=== PATIENT | female | born 1985 | race Caucasian/White ===

== ENCOUNTER 2021-04-20 07:03 | Outpatient (REF) | payer OTHER, SELFPAY ==
[2021-04-20 11:33] LABS: MANUAL DIFF FLAG NO
[2021-04-20 11:39] LABS: Appearance Urine CLEAR; Glucose Urine UA NEG (NEG); Leukocyte Esterase Urine NEG (NEG); Nitrite Urine NEG (NEG); Urine Blood NEG (NEG); Urine Ketones NEG (NEG); Urine Protein NEG (NEG-TRACE)
[2021-04-20 11:40] LABS: Color Urine COLORLESS
[2021-04-20 11:41] LABS: Basophils Percent Auto 0.4 % (0-2); Eosinophils Absolute Auto 0.2 X10*3/uL (0.0-0.4); Eosinophils Percent Auto 3.9 % (0-4); Hematocrit 40.5 % (37.0-47.0); Hemoglobin 13.4 g/dl (12.0-16.0); Imm Gran Abs Auto 0.01 X10*3/uL (0.00-0.03); Imm Gran Pct Auto 0.2 % (0.0-0.4); Lymphocytes Absolute Auto 2.2 X10*3/uL (1.2-4.9); Lymphocytes Percent Auto 39.8 % (20-40); Mean Corpuscular HGB Conc 33.1 g/dl (31.0-35.0); Mean Corpuscular Hemoglobin 29.4 pg (27.0-33.0); Mean Corpuscular Volume 88.8 fL (80.0-98.0); Mean Platelet Volume 11.6 fL (9.4-12.3); Monocytes Absolute Auto 0.4 X10*3/uL (0.1-1.2); Monocytes Percent Auto 6.4 % (2-11); Neutrophils Absolute Auto 2.8 x10*3/uL (2.0-8.3); Neutrophils Percent Auto 49.3 % (45-73); Platelet Count 214 X10*3/uL (160-400); Red Blood Count 4.56 X10*6/uL (4.20-5.50); Red Cell Distribution Width 13.3 % (11.0-16.0); White Blood Count 5.6 X10*3/uL (4.8-10.8)
[2021-04-20 11:52] LABS: Alanine Aminotransferase 29 U/L (0-31); Albumin Level 3.8 g/dL (3.5-5.0); Alkaline Phosphatase 64 U/L (39-117); Anion Gap 10 (12-20); Aspartate Amino Transferase 21 U/L (5-31); Bilirubin Total 0.4 mg/dL (0.0-1.0); Blood Urea Nitrogen 16 mg/dL (9-16); C Reactive Protein 0.35 mg/dL (< or = 0.50); Calcium 9.2 mg/dL (8.4-10.2); Carbon Dioxide 26 mmol/L (22-29); Chloride 109 mmol/L (96-108); Cholesterol 208 mg/dL; Estimated Glomerular Filt Rate > 60; Glucose Fasting 92 mg/dL (60-99); HDL Cholesterol 42 mg/dL; LDL Cholesterol Calculated 126 mg/dl; Potassium 4.4 mmol/L (3.3-5.1); Rheumatoid Factor < 15.0 IU/mL (<15.0); Sodium 141 mmol/L (135-145); Total Protein 6.2 g/dL (6.5-8.0); Triglycerides 201 mg/dL
[2021-04-20 12:15] LABS: TSH reflex Free T4 3.24 uIU/mL (0.32-4.0)
[2021-04-20 12:33] LABS: Erythrocyte Sedimentation Rate 13 MM/HR (0-20)
[2021-04-21 13:21] LABS: Anti Nuclear Antibody Screen NEGATIVE (NEGATIVE)
[2021-04-21 14:47] LABS: Cyclic Citrullinated Peptide <16 UNITS
[2021-04-21 21:26] LABS: Lyme Abs Screen <0.90 index
== END 2021-04-20 07:04 | disposition home or self-care (01) ==
LOC: HO.HMGCLDS 07:03
PROVIDERS: PCP Nurse Practitioner Family; Visit Provider Nurse Practitioner Family
DX: Z01.84 Encounter for antibody response examination (principal); M25.50 Pain in unspecified joint; F41.9 Anxiety disorder, unspecified
CPT/HCPCS: 36415; 80053; 80061; 81003; 84443; 85025; 85652; 86038; 86039; 86140; 86200; 86431; 86617; 86618

== ENCOUNTER → 2021-06-29 14:47 | Outpatient (REF) | payer OTHER, SELFPAY ==
--- NOTE | 2021-06-29 14:50 | HM_ITS ---
Conclusion: 1. Patient was monitored for total period of 3 days 2. Baseline was normal sinus rhythm with average heart of 63 beats per minute 3. No significant pauses noted 4. Very rare PVCs noted accounting for less than 0.01% of total beats 5. No patient reported events MTDD
== END ==
LOC: HO.CARD 14:47
PROVIDERS: PCP Nurse Practitioner Family; Visit Provider Nurse Practitioner Family
DX: R00.2 Palpitations (principal)
CPT/HCPCS: 93242

== ENCOUNTER 2021-07-21 15:10 | Outpatient (REF) | payer OTHER, SELFPAY | END 2021-07-21 15:11 | disposition home or self-care (01) | LOC: HO.HMGCLDS 15:10 | PROVIDERS: Visit Provider Nurse Practitioner Family | DX: E03.9 Hypothyroidism, unspecified (principal) | CPT/HCPCS: 36415; 84443 ==

== ENCOUNTER 2021-07-31 15:00 | Outpatient (RCR) | payer OTHER, SELFPAY ==
--- NOTE | 2021-07-20 16:43 | MHC.PT.EP ---
[facility] [place] Office [place] Office [place] Office [address] Kaylen Rodriguez [address] [phone] F: [phone] F: [phone] F: [phone] F: [phone] Physical Therapy Plan of Care Date of Evaluation: Date of Surgery: Diagnosis: L plantar fascial fibrosis. Assessment: Pt is a 35 y/o female referred to PT for eval and treat of plantar fibromatosis who presents with signs and Sx consistent with L foot plantar fasciitis resulting in decreased tolerance and ability to perform ambulatory and standing tasks initially and for duration, performing fitness activities, as well as negotiating stairs, and performing heavy HH chores secondary to decreased B hip and L ankle strength, decreased L ankle ROM as well as moderate pronation posture, increased plantar tissue tension,antalgic gait abnormality, plantar TTP, and pain. Pt is deemed an appropriate candidate to receive skilled PT in order to address her physical limitations to improve her functional ability. Frequency and Duration: The patient will be seen 2 x /wk x 5 wks. Short Term Goals: initiate HEP. improve pain with standing and ambulation to < 5/10; initial 8/10. Packager Hand Goals: i with HEP. Pt will be able to walk 2 blocks with at most a little bit of difficulty; initial: quite a bit of difficulty (LEFI). Pt will be able to stand > 1 hour with at most a little bit of difficulty; initial: quite a bit of difficulty (LEFI). improve B hip and MMT to at least 4+/5; initial 4/5 B. Pt no longer TTP of plantar tissue; initial: 2 + , moderate. Treatment Plan: Modalities to reduce pain, spasms and effusion. Manual therapy to restore motion and function. Therapeutic exercise to improve strength and flexibility. Neuromuscular re-education for posture and balance. Therapeutic activities to return to functional activities of daily living. Electronically signed by: Ian Abdi PT. Please sign and return to therapist. Thank you for your referral.
--- NOTE | 2021-08-17 13:10 | MHC.PT.DC ---
[facility] [place] Office [place] Office [place] Office [address] Kaylen Rodriguez [address] [phone] F: [phone] F: [phone] F: [phone] F: [phone] Physical Therapy Discharge Report Diagnosis: L plantar fascialfibrosis. Date of Surgery: Date of Evaluation: 07/20/21 Date of Discharge: 08/17/21 Treatments to Date: 2 Cancellations to Date: 1 No Shows to Date: 3 Discharge Status: Visit Non-compliance Discharge Summary: Pt instructed in basic HEP for her condition and ed on activity modification. Unfortunately she logged 1 cancelled and 3 no show appointments and is DC'd per [facility] attendance policy. Electronically signed by: Ian Abdi PT. Please sign and return to therapist. Thank you for your referral.
== END 2021-08-17 13:18 | disposition home or self-care (01) ==
LOC: HO.PTCHIC 15:00
PROVIDERS: PCP Nurse Practitioner Family; Visit Provider Nurse Practitioner Family
DX: M72.2 Plantar fascial fibromatosis (principal)
CPT/HCPCS: 97035; 97110; 97140; 97161

== ENCOUNTER 2021-10-01 07:31 | Outpatient (REF) | payer OTHER, SELFPAY ==
[2021-10-01 11:23] LABS: MANUAL DIFF FLAG NO
[2021-10-01 11:29] LABS: Appearance Urine CLEAR; Color Urine YELLOW; Glucose Urine UA NEG (NEG); Leukocyte Esterase Urine NEG (NEG); Nitrite Urine NEG (NEG); Specific Gravity - Urine <= 1.005 (1.005-1.025); Urine Blood NEG (NEG); Urine Ketones NEG (NEG); Urine Protein NEG (NEG-TRACE)
[2021-10-01 11:34] LABS: Basophils Percent Auto 0.5 % (0-2); Eosinophils Absolute Auto 0.3 X10*3/uL (0.0-0.4); Eosinophils Percent Auto 4.1 % (0-4); Hematocrit 41.5 % (37.0-47.0); Hemoglobin 13.9 g/dl (12.0-16.0); Imm Gran Abs Auto 0.01 X10*3/uL (0.00-0.03); Imm Gran Pct Auto 0.2 % (0.0-0.4); Lymphocytes Absolute Auto 2.6 X10*3/uL (1.2-4.9); Lymphocytes Percent Auto 42.2 % (20-40); Mean Corpuscular HGB Conc 33.5 g/dl (31.0-35.0); Mean Corpuscular Hemoglobin 29.9 pg (27.0-33.0); Mean Corpuscular Volume 89.2 fL (80.0-98.0); Mean Platelet Volume 11.4 fL (9.4-12.3); Monocytes Absolute Auto 0.4 X10*3/uL (0.1-1.2); Monocytes Percent Auto 6.4 % (2-11); Neutrophils Absolute Auto 2.9 x10*3/uL (2.0-8.3); Neutrophils Percent Auto 46.6 % (45-73); Platelet Count 235 X10*3/uL (160-400); Red Blood Count 4.65 X10*6/uL (4.20-5.50); Red Cell Distribution Width 13.3 % (11.0-16.0); White Blood Count 6.1 X10*3/uL (4.8-10.8)
[2021-10-01 11:53] LABS: Alanine Aminotransferase 27 U/L (0-31); Alkaline Phosphatase 59 U/L (39-117); Anion Gap 10 (12-20); Aspartate Amino Transferase 21 U/L (5-31); Bilirubin Total 0.5 mg/dL (0.0-1.0); Blood Urea Nitrogen 15 mg/dL (9-16); Calcium 9.2 mg/dL (8.4-10.2); Carbon Dioxide 27 mmol/L (22-29); Chloride 107 mmol/L (96-108); Cholesterol 203 mg/dL; Estimated Glomerular Filt Rate > 60; Glucose Fasting 87 mg/dL (60-99); HDL Cholesterol 41 mg/dL; LDL Cholesterol Calculated 117 mg/dl; Potassium 4.7 mmol/L (3.3-5.1); Sodium 139 mmol/L (135-145); Total Protein 6.5 g/dL (6.5-8.0); Triglycerides 228 mg/dL
[2021-10-01 12:15] LABS: TSH reflex Free T4 2.01 uIU/mL (0.32-4.0)
== END 2021-10-01 07:32 | disposition home or self-care (01) ==
LOC: HO.HMGCLDS 07:31
PROVIDERS: PCP Nurse Practitioner Family; Visit Provider Nurse Practitioner Family
DX: F41.9 Anxiety disorder, unspecified (principal)
CPT/HCPCS: 36415; 80053; 80061; 81003; 84443; 85025

== ENCOUNTER 2021-12-10 10:57 | Outpatient (REF) | payer OTHER, SELFPAY ==
[2021-12-10 13:41] LABS: MANUAL DIFF FLAG NO
[2021-12-10 13:49] LABS: Basophils Percent Auto 0.6 % (0-2); Eosinophils Absolute Auto 0.3 X10*3/uL (0.0-0.4); Eosinophils Percent Auto 3.8 % (0-4); Hematocrit 43.1 % (37.0-47.0); Hemoglobin 14.9 g/dl (12.0-16.0); Imm Gran Abs Auto 0.02 X10*3/uL (0.00-0.03); Imm Gran Pct Auto 0.3 % (0.0-0.4); Lymphocytes Absolute Auto 2.4 X10*3/uL (1.2-4.9); Mean Corpuscular HGB Conc 34.6 g/dl (31.0-35.0); Mean Corpuscular Hemoglobin 30.5 pg (27.0-33.0); Mean Corpuscular Volume 88.3 fL (80.0-98.0); Monocytes Absolute Auto 0.5 X10*3/uL (0.1-1.2); Neutrophils Percent Auto 55.3 % (45-73); Platelet Count 247 X10*3/uL (160-400); Red Blood Count 4.88 X10*6/uL (4.20-5.50); Red Cell Distribution Width 12.5 % (11.0-16.0); White Blood Count 7.2 X10*3/uL (4.8-10.8)
[2021-12-10 14:11] LABS: Alanine Aminotransferase 26 U/L (0-31); Albumin Level 4.4 g/dL (3.5-5.0); Alkaline Phosphatase 69 U/L (39-117); Anion Gap 15 (12-20); Aspartate Amino Transferase 17 U/L (5-31); Bilirubin Total 0.5 mg/dL (0.0-1.0); Blood Urea Nitrogen 18 mg/dL (9-16); Calcium 9.2 mg/dL (8.4-10.2); Carbon Dioxide 27 mmol/L (22-29); Chloride 105 mmol/L (96-108); Estimated Glomerular Filt Rate > 60; Glucose Random 90 mg/dL (60-115); Potassium 4.9 mmol/L (3.3-5.1); Sodium 142 mmol/L (135-145); Total Protein 7.3 g/dL (6.5-8.0)
== END 2021-12-10 10:58 | disposition home or self-care (01) ==
LOC: HO.HMGCLDS 10:57
PROVIDERS: PCP Nurse Practitioner Family; Visit Provider Nurse Practitioner Family
DX: R00.2 Palpitations (principal); R42 Dizziness and giddiness
CPT/HCPCS: 36415; 80053; 84443; 85025

== ENCOUNTER 2021-12-29 11:26 | Outpatient (REF) | payer OTHER, SELFPAY ==
[2021-12-29 14:00] LABS: MANUAL DIFF FLAG NO
[2021-12-29 14:24] LABS: Basophils Percent Auto 0.4 % (0-2); Eosinophils Absolute Auto 0.3 X10*3/uL (0.0-0.4); Eosinophils Percent Auto 3.7 % (0-4); Hematocrit 41.6 % (37.0-47.0); Imm Gran Abs Auto 0.02 X10*3/uL (0.00-0.03); Imm Gran Pct Auto 0.3 % (0.0-0.4); Lymphocytes Absolute Auto 2.4 X10*3/uL (1.2-4.9); Lymphocytes Percent Auto 32.8 % (20-40); Mean Corpuscular HGB Conc 33.7 g/dl (31.0-35.0); Mean Corpuscular Hemoglobin 29.7 pg (27.0-33.0); Mean Corpuscular Volume 88.3 fL (80.0-98.0); Mean Platelet Volume 11.4 fL (9.4-12.3); Monocytes Absolute Auto 0.4 X10*3/uL (0.1-1.2); Monocytes Percent Auto 5.5 % (2-11); Neutrophils Absolute Auto 4.1 x10*3/uL (2.0-8.3); Neutrophils Percent Auto 57.3 % (45-73); Platelet Count 244 X10*3/uL (160-400); Red Blood Count 4.71 X10*6/uL (4.20-5.50); Red Cell Distribution Width 12.8 % (11.0-16.0); White Blood Count 7.2 X10*3/uL (4.8-10.8)
[2021-12-29 14:41] LABS: Alanine Aminotransferase 23 U/L (0-31); Albumin Level 4.1 g/dL (3.5-5.0); Alkaline Phosphatase 69 U/L (39-117); Anion Gap 14 (12-20); Aspartate Amino Transferase 18 U/L (5-31); Bilirubin Total 0.3 mg/dL (0.0-1.0); Blood Urea Nitrogen 17 mg/dL (9-16); Calcium 9.2 mg/dL (8.4-10.2); Carbon Dioxide 24 mmol/L (22-29); Chloride 106 mmol/L (96-108); Estimated Glomerular Filt Rate > 60; Glucose Random 88 mg/dL (60-115); Iron 77 mcg/dL (30-160); Percent Iron Saturation 22 % (15-50); Potassium 4.3 mmol/L (3.3-5.1); Sodium 140 mmol/L (135-145); Total Iron Binding Capacity 349 mcg/dL (228-428); Unsaturated Iron Binding 272 ug/dL
[2021-12-29 14:59] LABS: Erythrocyte Sedimentation Rate 16 MM/HR (0-20)
[2021-12-29 15:05] LABS: Ferritin 59 ng/mL (10-122)
[2021-12-29 15:09] LABS: Vitamin B12 275 pg/mL (200-900)
[2021-12-29 15:11] LABS: Monotest Negative (Negative)
[2021-12-30 11:42] LABS: CRP High Sensitivity 1.4 mg/L
[2021-12-30 20:47] LABS: Anti Nuclear Antibody Screen NEGATIVE (NEGATIVE)
[2021-12-30 23:18] LABS: A. Phagocytphilium DNA,RT-PCR NOT DETECTED (NOT DETECTED); Babesia Microti DNA, RT-PCR NOT DETECTED (NOT DETECTED); Borrelia Miyamotoi,DNA RT-PCR NOT DETECTED (NOT DETECTED); E.Chaffeensis DNA RT-PCR NOT DETECTED (NOT DETECTED); Lyme(Borrelia ssp)DNA RT-PCR NOT DETECTED (NOT DETECTED)
[2022-01-06 15:42] LABS: DNAds, Crithidia Antibody Positive (Negative)
[2022-01-06 16:16] LABS: DNAds, Crithidia Antibody 1:40 titer (<1:10)
== END 2021-12-29 11:27 | disposition home or self-care (01) ==
LOC: HO.HMGCLDS 11:26
PROVIDERS: PCP Nurse Practitioner Family; Visit Provider Nurse Practitioner Family
DX: R42 Dizziness and giddiness (principal); R53.83 Other fatigue
CPT/HCPCS: 36415; 80053; 82607; 82728; 83540; 85025; 85652; 86038; 86039; 86141; 86255; 86308; 87798; 87801

== ENCOUNTER 2022-01-09 10:35 | Outpatient (REF) | payer OTHER, SELFPAY ==
--- NOTE | ~2022-01-09 | XR_ITS ---
EXAMINATION: XR CHEST CLINICAL INFORMATION: R06.2 - Wheezing COMPARISON: None TECHNIQUE: 2 views of the chest were obtained. FINDINGS: No hyperinflation. No pneumothorax, airspace consolidation, or groundglass opacity. The costophrenic sulci are clear. Heart size normal. Vascularity normal. The hilar and mediastinal contours and visualized bony structures are unremarkable. XR/XR chest 2V IMPRESSION: Normal study.
[2022-01-15 18:25] LABS: Histamine Plasma <1.5 ng/mL (< OR = 1.8)
== END 2022-01-09 10:36 | disposition home or self-care (01) ==
LOC: HO.LAB 10:35
PROVIDERS: PCP Nurse Practitioner Family; Visit Provider Nurse Practitioner Family
DX: R06.2 Wheezing (principal); R42 Dizziness and giddiness
CPT/HCPCS: 36415; 71046; 83088

== ENCOUNTER → 2022-01-13 07:37 | Outpatient (REF) | payer OTHER, SELFPAY ==
--- NOTE | 2022-01-13 07:40 | HM_ITS ---
Conclusion: 1. Patient was monitored for total period of 2 days and 2 hours 2. Baseline was normal sinus with average heart of 61 beats per minute with lowest heart rate of 37 beats per minute 3. No significant pauses noted 4. Frequent sinus bradycardia noted with 53% of the time heart rate below 60 beats per minute 5. Very rare ectopy noted 6. No patient reported symptoms MTDD
== END ==
LOC: HO.CARD 07:37
PROVIDERS: PCP Nurse Practitioner Family; Visit Provider Nurse Practitioner Family
DX: R00.2 Palpitations (principal)
CPT/HCPCS: 93242

== ENCOUNTER → 2022-01-28 14:51 | Outpatient (REF) | payer OTHER, SELFPAY ==
--- NOTE | 2022-01-28 14:53 | CA_ITS ---
Transthoracic Echocardiogram Patient (Last, First, Middle): Shruti Renee, Gender: Female Date of : 1985 Age: 36 Procedure Date: 01/28/2022 Procedure Type: Transthoracic Echocardiogram Location: OP Height: 167.64 cm Weight: 106.6 kg BSA: 2.14 m2 Heart Rate: bpm BP: 118 / 78 mmHg Thread Laster: TO Referring MD: Prasanth Garcia [facility] Sterile Process Coordinator: Mynor Perkins MD Symptoms: R00.2 Study Quality: Fair/Contrast ECG Rhythm: Sinus Conclusions: - Normal study Findings Procedure Information Contrast agent, definity, is being given per protocol without apparent complications. Left Ventricle Normal left ventricular size, thickness, and systolic function. The visually estimated ejection fraction is between 55-60%. Diastolic function is normal for age. Right Ventricle Normal right ventricular cavity size and systolic function. Atria Both atria are normal in size. There is no evidence of interatrial shunt. Aortic Valve Normal aortic valve structure and function. There is no aortic valve stenosis. There is no aortic valve regurgitation. Mitral Valve Normal mitral valve structure and function. There is trace mitral valve regurgitation. There is no mitral valve stenosis. Pulmonic Valve The pulmonic valve is likely normal. Tricuspid Valve Normal tricuspid valve structure. There is trace tricuspid valve regurgitation. The right ventricular systolic pressure is normal. The right ventricular systolic pressure is 16 mmHg. Normal right atrial pressure. There is no evidence of pulmonary hypertension. Great Vessels All visible segments of the aorta are normal in size. The pulmonary artery was not well visualized. Venous The inferior vena cava is normal in size and collapses greater than 50% with inspiration. Pericardium/Pleural There is no evidence of pericardial effusion. Prior Study Comparison No prior study available for comparison. Measurements 2D Linear Measurements IVSd: 0.87 0.6-0.9/0.6-1.0 cm LVIDd: 4.86 3.9-5.3/4.2-5.9 cm LVIDd Index: 2.27 2.4-3.2/2.2-3.1 cm/m2 LVIDs: 2.96 2.0-3.6 cm LVPWd: 0.94 0.7-1.1 cm LA Diam: 3.40 2.7-3.8/3.0-4.0 cm LAIDs Index: 1.59 1.5-2.3 cm/m2 LV Mass: 188.67 67-162/88-224 g LV Mass Index: 88.16 43-95/49-115 g/m2 LVOT Diam: 2.10 3.0+(-)1.3 cm 2D Systolic Function EF 4C: 55.00 >55% EF 2C: 64.00 >55% EF BiP: 59.60 >55% Mitral Valve MV Pk E: 0.94 MV PK A: 0.42 MV Decel Time: 197.00 E/A: 2.20 E'Lateral: 13.80 E'Medial: 10.70 E/E' Med: 8.80 E/E' Lat: 6.80 PHT: 58.00 MVA PHT: 3.79 Decel [place]: 4.76 Aortic Valve AoV Pk Bart: 1.36 AoV Mn Bart: 0.96 AoV VTI: 0.30 AoV Pk Grad: 7.00 Aov Mn Grad: 4.00 DWAIN Cont.VTI: 2.92 LVOT LVOT Pk Bart: 1.24 LVOT Mn Bart: 0.79 LVOT VTI: 0.25 LVOT Pk Grad: 6.00 LVOT Mn Grad: 3.00 LVOT Diam: 2.10 LVOT Area: 3.46 Diastolic Function MV Pk E: 0.94 MV Pk A: 0.42 E/A: 2.20 E'Medial: 10.70 E/E' Med: 8.80 E' Laterial: 13.80 E/E' Lat: 6.80 Right Ventricle TAPSE (mm): 21.60 TVS' Bart: 11.20 Tricuspid Valve TR Pk Bart: 1.82 TR Pk Grad: 13.00 RA Press: 3.00 RVSP: 16.00 Great Vessels Aorta Sinus of Valsalva: 2.94 2.0-3.5 cm Ao Asc: 2.80 2.1-3.4 cm Ao Arch: 2.40 Updated in Other Vendor System with Status of Final Mynor Perkins MD electronically signed on 01/29/2022 1:16:37 PM with status of Final
== END ==
LOC: HO.CARD 14:51
PROVIDERS: Visit Provider Nurse Practitioner Family
DX: R00.2 Palpitations (principal); R42 Dizziness and giddiness
CPT/HCPCS: 93306; Q9957

== ENCOUNTER 2022-04-24 08:09 | Outpatient (REF) | payer OTHER, SELFPAY ==
[2022-04-24 11:27] LABS: Alanine Aminotransferase 17 U/L (0-31); Albumin Level 4.1 g/dL (3.5-5.0); Alkaline Phosphatase 67 U/L (39-117); Anion Gap 11 (12-20); Aspartate Amino Transferase 14 U/L (5-31); Bilirubin Total 0.5 mg/dL (0.0-1.0); Blood Urea Nitrogen 13 mg/dL (9-16); Calcium 9.1 mg/dL (8.4-10.2); Carbon Dioxide 27 mmol/L (22-29); Chloride 107 mmol/L (96-108); Cholesterol 205 mg/dL; Estimated Glomerular Filt Rate > 60; Glucose Fasting 95 mg/dL (60-99); HDL Cholesterol 41 mg/dL; LDL Cholesterol Calculated 130 mg/dl; Potassium 4.8 mmol/L (3.3-5.1); Sodium 140 mmol/L (135-145); Total Protein 6.4 g/dL (6.5-8.0); Triglycerides 171 mg/dL
== END 2022-04-24 08:10 | disposition home or self-care (01) ==
LOC: HO.HMGCLDS 08:09
PROVIDERS: PCP Nurse Practitioner Family; Visit Provider Nurse Practitioner Family
DX: R53.83 Other fatigue (principal)
CPT/HCPCS: 36415; 80053; 80061

== ENCOUNTER → 2022-05-07 07:20 | Outpatient (BNVA) | payer OTHER, SELFPAY | PROVIDERS: PCP Nurse Practitioner Family; Visit Provider Student in an Organized Health Care Education/Training Program | DX: R76.8 Other specified abnormal immunological findings in serum (principal) | CPT/HCPCS: 99212 ==

== ENCOUNTER 2023-03-11 08:08 | Outpatient (AMB) | payer OTHER, MEDICAID, SELFPAY ==
[2023-03-11 08:19] VITALS: BP 120/72; PULSE 94; TEMP 36.6; O2SAT 99; BMI 42.0
--- NOTE | 2023-03-11 08:19 | AM.OFFWIN_ITS ---
Intake Vital Signs 03/11/23 08:19 Height 5 ft 6 in Weight 260 lb BMI 42.0 BP 120/72 Blood Pressure Location Rt brachial Position Sitting Pulse 94 Pulse Source Pulse Oximeter Temp 97.8 F Temp Source Temporal Artery Scan Pulse Oximetry (%) 99 Intake Visit Reasons: EST/possible strep? (lobby masked) Intake Note: Pt is here for c/o possible strep, pt is 32 weeks Patient Tobacco Use Status: Never used Tobacco Allergies pseudoephedrine [Sudafed] Adverse Reaction (Unknown, Verified 03/11/23 08:32) Tachycardia Medication List - Last Reconciled 03/11/23 by Akash Martin MD levothyroxine 75 mcg PO DAILY prenat.vits,viraj,bfh-noth-lrofw 1 tab PO DAILY Do you need a note to return to daycare/school/sports/work: Yes HPI EST/possible strep? (lobby masked) HPI Details Patient presents for a sick visit. Reporting symptoms of sinus congestion, sore throat and difficulty swallowing. Low-grade fever. No family member is sick. No recent travel. Patient reports symptoms of malaise and fatigue. Patient is 32 weeks . She has a pinkeye. She was seen at a walk-in facility yesterday. Is on antibiotics for the eye. [facility] Medical History Acquired hypothyroidism GERD with stricture Obesity Plantar fasciitis of left foot Polyarthralgia depression Surgical History H/O endoscopy History of cholecystectomy Hx of section Hx of colonoscopy Family History Mother Substance use disorder Mental health disorder Medical history unknown Sister Substance use disorder Mental health disorder Sister Substance use disorder Mental health disorder Sister Substance use disorder Mental health disorder Social History Housing: House Alcohol intake: current Alcohol intake frequency: a few times a month Patient Tobacco Use Status: Never used Tobacco e-Cigarette/Vaping Use: Never Used Second Hand Smoke Exposure: No Current occupational status: employed 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 Corneas clear. Anterior chamber clear. Neck Neck: Yes normal visual inspection Chest Chest palpation & inspection: normal palpation of entire chest wall Resp Effort & Inspection: normal respiratory effort Cardio Heart sounds: S1 normal heart sound present and S2 normal heart sound present Neuro General: patient oriented x3 Assessment & Plan Assessment & Plan (1) Upper respiratory tract infection: Code(s): J06.9 - Acute upper respiratory infection, unspecified Plan: Symptoms mostly of viral etiology. Strep test is negative. Patient does have some white spots in the back of her throat. Do not look infectious. No antibiotics needed. Continue ointment for the eye. Coding Level of Care Code Est Pt Level 3 (49595) Diagnoses Upper respiratory tract infection J06.9
== END 2023-03-11 08:45 | disposition home or self-care (01) ==
PROVIDERS: PCP Nurse Practitioner Family; Visit Provider Internal Medicine
DX: J06.9 Acute upper respiratory infection, unspecified (principal); J02.9 Acute pharyngitis, unspecified
CPT/HCPCS: 87880; 99213

== ENCOUNTER 2023-03-22 12:42 | Outpatient (AMB) | payer OTHER, MEDICAID, SELFPAY ==
--- NOTE | 2023-03-22 13:11 | MHC.OFFWIV ---
Intake Vital Signs 03/22/23 13:14 Height 5 ft 6 in Weight 262 lb BMI 42.3 BP 134/78 Blood Pressure Location Lt brachial Position Sitting Pulse 96 Pulse Source Pulse Oximeter Temp 98.1 F Temp Source Temporal Artery Scan Pulse Oximetry (%) 98 Intake Visit Reasons: EP cough airway feels restricted few weeks Intake Note: pt is here for c.o cough was seen in walk in recently and has no relief Patient Tobacco Use Status: Never used Tobacco Allergies pseudoephedrine [Sudafed] Adverse Reaction (Unknown, Verified 03/22/23 13:24) Tachycardia Do you need a note to return to daycare/school/sports/work: Yes HPI HPI Comments History of Present Illness Details Patient is a 37-year-old female in today for a sick visit. She was last seen in the walk-in 11 days prior to the appointment for similar complaint of dry cough that gets worse at night. She states that she has multiple family members at home that have been sick, including her partner and child. She denies having fever, chest pain, shortness of breath, nausea, vomiting, or diarrhea. She states she has used crel-[id number] cough medicine with little relief. She is currently 34 weeks she is being followed by [facility] cosmetic sales assistant. Patient's head is normocephalic, TMs visible intact and pearly vega. Nares patent. No mastoid tenderness. Erythema, and cobblestoning of the posterior pharynx. Tonsils are +2, erythema. No lymphadenopathy. Patient likely has upper respiratory viral infection. This is unlikely to be epiglottitis, mastoiditis, or pose any threat to the airway. This is unlikely to be pneumonia due to clear lung sounds bilaterally throughout and no presence of fever. Patient can use approved over the counter cough medicine. She has been educated on the side effects of the medication. Patient has been advised to inform her [facility] office of her visits to the walk-in clinic. Patient has been educated on signs of worsening symptoms when to return to the walk-in clinic or when to present to the emergency room. [facility] Medical History Acquired hypothyroidism GERD with stricture Obesity Plantar fasciitis of left foot Polyarthralgia depression Surgical History H/O endoscopy History of cholecystectomy Hx of section Hx of colonoscopy Family History Mother Substance use disorder Mental health disorder Medical history unknown Sister Substance use disorder Mental health disorder Sister Substance use disorder Mental health disorder Sister Substance use disorder Mental health disorder Social History Housing: House Alcohol intake: current Alcohol intake frequency: a few times a month Patient Tobacco Use Status: Never used Tobacco e-Cigarette/Vaping Use: Never Used Second Hand Smoke Exposure: No Current occupational status: employed 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 Cognitive needs: No Hearing needs: No Vision needs: No Review of Systems Const All systems reviewed & are unremarkable except as noted in HPI and below Denies headache(s) ENT Denies dizziness, Denies otalgia and Denies headache(s) Card Denies chest pain and Denies dyspnea Resp Reports cough and Denies dyspnea GI Denies diarrhea, Denies nausea and Denies vomiting Neuro Denies dizziness and Denies headache(s) Physical Exam Vital Signs: Last Vital Signs Temp 98.1 F 03/22/23 13:14 Pulse 96 03/22/23 13:14 BP 134/78 03/22/23 13:14 Pulse Ox 98 03/22/23 13:14 BMI result Body Mass Index 42.3 Patient's vital signs have been reviewed and are stable. Const General: cooperative and no acute distress Orientation/consciousness: patient oriented x3 Limitations: no limitations HEENT Head: Yes normocephalic Ears: TM's normal bilaterally General nose exam: Normal external nose present and Normal nares present Face and sinus: Yes normal facial exam Throat: Yes abnormal tonsil (Tonsils +2, erythema present.) and Yes cobblestoning Eyes General: appearance normal, both eyes and all related structures Neck Neck: Yes normal visual inspection, Yes full ROM and Yes no lymphadenopathy Resp Auscultation: clear to auscultation bilaterally Cardio Rate: regular rate Rhythm: regular rhythm Heart sounds: S1 normal heart sound present and S2 normal heart sound present Neuro General: patient oriented x3 Results Reviewed Results Reviewed: Will call patient with swab results. Assessment & Plan Assessment & Plan (1) Upper respiratory tract infection: Code(s): J06.9 - Acute upper respiratory infection, unspecified Qualifiers: URI type: unspecified URI Qualified Code(s): J06.9 - Acute upper respiratory infection, unspecified Plan: Patient has no fever, breath sounds are clear bilaterally throughout, patient has no shortness of breath. Due to patient's status will recommend patient use [id number]-[id number] remedies for symptom relief. She can use mztp-gxn-kodxhnk cough medicine, humidifier to help with the cough. Patient states she has young kids at home that are sick, swabbed in office. This is likely a infection of viral etiology. Patient has been educated on signs of worsening symptoms when to present to the emergency room or when to present to the walk-in clinic. Orders: Orders SARS-CoV2/FLU/RSV Today J06.9 - Acute upper respiratory infection, unspecified Coding Level of Care Code Est Pt Level 3 (68021) Diagnoses Upper respiratory tract infection, unspecified type J06.9 URI type: unspecified URI Time Spent (min) 15
[2023-03-22 13:14] VITALS: BP 134/78; PULSE 96; TEMP 36.7; O2SAT 98; BMI 42.3
== END 2023-03-22 14:39 | disposition home or self-care (01) ==
PROVIDERS: PCP Nurse Practitioner Family; Visit Provider Nurse Practitioner Primary Care
DX: J06.9 Acute upper respiratory infection, unspecified (principal)
CPT/HCPCS: 99213

== ENCOUNTER 2023-03-22 16:01 | Outpatient (REF) | payer OTHER, SELFPAY ==
[2023-03-22 17:42] LABS: Influenza A PCR NEGATIVE (Negative); Influenza B PCR NEGATIVE (Negative); Resp Syncy Virus RNA Qual PCR NEGATIVE (Negative); SARS COV2 PCR INHOUSE NEGATIVE (Negative)
== END 2023-03-22 16:02 | disposition home or self-care (01) ==
LOC: HO.LNP 16:01
PROVIDERS: Visit Provider Nurse Practitioner Primary Care
DX: Z11.52 Encounter for screening for COVID-19 (principal); J06.9 Acute upper respiratory infection, unspecified
CPT/HCPCS: 0241U

== ENCOUNTER 2023-07-08 11:43 | Outpatient (AMB) | payer OTHER, MEDICAID, SELFPAY ==
--- NOTE | 2023-07-08 11:55 | AM.OFFWIN_ITS ---
Intake Vital Signs 07/08/23 11:57 Weight 241 lb BP 126/80 Blood Pressure Location Lt brachial Position Sitting Pulse 63 Pulse Source Pulse Oximeter Pulse Oximetry (%) 98 Oxygen Delivery Method Room Air Intake Visit Reasons: EP ?Strep Intake Note: Patient here to be tested for strep as her daughter recent tested positive for it and has been having a sore throat for some time now. Patient Tobacco Use Status: Never used Tobacco Allergies pseudoephedrine [Sudafed] Adverse Reaction (Unknown, Verified 07/08/23 11:58) Tachycardia Do you need a note to return to daycare/school/sports/work: No HPI HPI Comments History of Present Illness Details 37 y/o female patient who presents to [facility] in clinic with c/o Sore- throat x 1 week. Daughter home with Strept throat. She wants to get tested just in case she caught it. Denies fevers, chills, nausea or vomiting. [facility] Medical History Acquired hypothyroidism GERD with stricture Obesity Plantar fasciitis of left foot Polyarthralgia depression Surgical History H/O endoscopy History of cholecystectomy Hx of section Hx of colonoscopy Family History Mother Substance use disorder Mental health disorder Medical history unknown Sister Substance use disorder Mental health disorder Sister Substance use disorder Mental health disorder Sister Substance use disorder Mental health disorder Social History Housing: House Alcohol intake: current Alcohol intake frequency: a few times a month Patient Tobacco Use Status: Never used Tobacco e-Cigarette/Vaping Use: Never Used Second Hand Smoke Exposure: No Current occupational status: employed 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 Cognitive needs: No Hearing needs: No Vision needs: No Review of Systems Const All systems reviewed & are unremarkable except as noted in HPI and below Physical Exam Vital Signs: Last Vital Signs Pulse 63 07/08/23 11:57 BP 126/80 07/08/23 11:57 Pulse Ox 98 07/08/23 11:57 Oxygen Delivery Method Room Air 07/08/23 11:57 Const General: comfortable and no acute distress Nutritional Appearance: obese Orientation/consciousness: patient oriented x3 HEENT Head: Yes normocephalic Ears: external ears normal and TM's normal bilaterally General nose exam: Normal nasal mucous membranes and turbinates present Face and sinus: Yes sinuses nontender Mouth: moist mucous membranes Throat: Yes uvula midline and Yes postnasal drainage Resp Effort & Inspection: normal respiratory effort and able to speak in complete sentences Auscultation: clear to auscultation bilaterally, no crackles, no rales, no rhonchi and no wheezes Cardio Rate: regular rate Rhythm: regular rhythm Neuro General: patient oriented x3 Assessment & Plan Assessment & Plan (1) Acute pharyngitis: Code(s): J02.9 - Acute pharyngitis, unspecified Qualifiers: Pharyngitis/tonsillitis etiology: unspecified etiology Qualified Code(s): J02.9 - Acute pharyngitis, unspecified Plan: - Rest - Warm fluids with honey - OTC cough/sorethroat remedies - Acetaminophen for pain relief. Coding Level of Care Code Est Pt Level 3 (05429) Diagnoses Acute pharyngitis, unspecified etiology J02.9 Pharyngitis/tonsillitis etiology: unspecified etiology Time Spent (min) 15
[2023-07-08 11:57] VITALS: BP 126/80; PULSE 63; O2SAT 98
== END 2023-07-08 14:23 | disposition home or self-care (01) ==
PROVIDERS: PCP Nurse Practitioner Family; Visit Provider Nurse Practitioner Family
DX: J02.9 Acute pharyngitis, unspecified (principal)
CPT/HCPCS: 87880; 99213

== ENCOUNTER 2023-07-19 07:31 | Outpatient (AMB) | payer OTHER, MEDICAID, SELFPAY ==
[2023-07-19 07:32] VITALS: BP 104/80; PULSE 82; O2SAT 98; BMI 38.2
--- NOTE | 2023-07-19 07:32 | A.OFFPC_ITS ---
Vital Signs 07/19/23 07:32 Height 5 ft 6 in Weight 237 lb BMI 38.2 BP 104/80 Blood Pressure Location Rt brachial Position Sitting Pulse 82 Pulse Source Pulse Oximeter Pulse Oximetry (%) 98 Oxygen Delivery Method Room Air Intake Visit Reasons: PE Intake Note: Pt is here today for her PE Allergies pseudoephedrine [Sudafed] Adverse Reaction (Unknown, Verified 07/19/23 08:12) Tachycardia Medication List - Last Reconciled 07/19/23 by VENKATESH Nye levothyroxine 75 mcg PO DAILY prenat.vits,viraj,cwz-ojod-lptci 1 tab PO DAILY sertraline 50 mg PO DAILY Tobacco use date assessed: 07/19/23 Dental Screening Dental Screen Date: 07/19/23 Did you have a dental visit in the last 12 months?: Yes Did you have a dental problem in the last 6 months where you did not have access to dental care?: No Was dental information given to patient?: Patient has dentist HPI PE HPI Details Pt is here for a PE. Will order labs. 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 Pt is 2 months . She is taking zoloft which is helpful. Pt is seeing cardiology and rheumatology. [facility] Medical History Plantar fasciitis of left foot depression Obesity Acquired hypothyroidism Polyarthralgia GERD with stricture Surgical History Hx of section History of cholecystectomy H/O endoscopy Hx of colonoscopy Family History Mother Substance use disorder Mental health disorder Medical history unknown Sister Substance use disorder Mental health disorder Sister Substance use disorder Mental health disorder Sister Substance use disorder Mental health disorder Social History Housing: House Alcohol intake: current Alcohol intake frequency: a few times a month Patient Tobacco Use Status: Never used Tobacco e-Cigarette/Vaping Use: Never Used Second Hand Smoke Exposure: No Current occupational status: employed 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 1. Little interest or pleasure in doing things: not at all 2. Feeling down, depressed, or hopeless: not at all 3. Trouble falling or staying asleep, or sleeping too much: not at all 4. Feeling tired or having little energy: not at all 5. Poor appetite or overeating: not at all 6. Feeling bad about yourself - or that you are a failure or have let yourself or your family down: not at all 7. Trouble concentrating on things, such as reading the newspaper or watching television: not at all 8. Moving or speaking so slowly that other people could have noticed. Or the opposite - being so fidgety or restless that you have been moving around a lot more than usual: not at all 9. Thoughts that you would be better off or of hurting yourself in some way: not at all Total score: 0 Depression Screening Interpretation: Negative Depression Screening Done: Yes 25695 - PHQ-9 Billing: Yes Source: Developed by Drs. Tray Snyder, Myra Chowdhury, Edwin Thomason and colleagues, with an educational luisf ernando from [employer]. Thrive Questionnaire Date Thrive assessed: 07/19/23 I am a: Patient What is your living situation today?: I have a steady place to live Within the past 12 months, did the food you bought not last and you didn't have the money to get more?: Never true Within the past 12 months, did you worry whether your food would run out before you got money to buy more?: Never true Do you have trouble paying for medicines?: No Do you have trouble getting transportation to medical appointments?: No Do you have trouble paying your heating and electricity bill?: No Do you have trouble taking care of your child, family member or friend?: No Do you have trouble with day-to-day activities such as bathing, preparing meals, shopping, managing finances, etc.?: No Are you currently unemployed and looking for a job?: No Are you interested in more education?: No Currently or been in a relationship where the following occur: no concerns reported THRIVE Score: 0 AUDIT C Alcohol Use Questionnaire (AUDIT-C) 1. How often do you have a drink containing alcohol?: Never Total Score: 0 YAZAN-7 AMB Questionnaire YAZAN-7 Date YAZAN - 7 assessed: 07/19/23 Feeling nervous, anxious, or on edge: 0 = Not at all Not being able to stop or control worryin = Not at all Worrying too much about different things: 0 = Not at all Trouble relaxin = Not at all Being so restless that it is hard to sit still: 0 = Not at all Becoming easily annoyed or irritable: 0 = Not at all Feeling afraid as if something awful might happen: 0 = Not at all Total YAZAN-7 score (0-4 normal; 5-9 mild; 10-14 moderate; 15-21 severe): 0 Source: Developed by Drs. Tray Snyder, Myra Chowdhury, Edwin Thomason and colleagues, with an educational luis fernando from [employer]. Review of Systems Const Denies chills and Denies fever(s) Eyes Denies blurry vision ENT Denies vertigo, Denies dizziness and Denies sore throat Card Denies chest pain at rest, Denies chest pain with activity, Denies diaphoresis, Denies dyspnea and Denies dyspnea on exertion Resp Denies cough, Denies dyspnea, Denies dyspnea on exertion and Denies wheezing GI Denies abdominal pain, Denies melena, Denies hematochezia, Denies constipation, Denies diarrhea and Denies loose stools Denies hematuria Musc Denies numbness and Denies tingling Skin/Breast Denies lesions Neuro Denies vertigo, Denies dizziness, Denies numbness and Denies tingling Psych Denies anxiety, Denies depression, Denies homicidal ideation, Denies suicidal ideation and Denies other (substance abuse) Aller/Immun Denies wheezing Physical exam (Primary Care) Vital Signs: Last Vital Signs Pulse 82 07/19/23 07:32 BP 104/80 07/19/23 07:32 Pulse Ox 98 07/19/23 07:32 Oxygen Delivery Method Room Air 07/19/23 07:32 BMI result Body Mass Index 38.2 Tobacco/Smoking Status: Tobacco use Status Tobacco use date assessed 07/19/23 07/19/23 07:39 Patient Tobacco Use Status Never used Tobacco 07/19/23 07:34 e-Cigarette/Vaping Use Never Used 07/19/23 07:34 PHQ-9: PHQ-9 Score PHQ-9: Total score 0 07/19/23 07:53 Depression Screening Interpretation: Negative Thrive Assessment: Date of Thrive Assessment Date Thrive assessed 07/19/23 07/19/23 07:43 Currently or been in a relationship where the following occur: no concerns reported Const General: cooperative Nutritional Appearance: obese Orientation/consciousness: patient oriented x3 HENMT Head: Yes normal to inspection, Yes normocephalic and Yes atraumatic Ears: TM's normal bilaterally Eyes General: appearance normal, both eyes and all related structures Alignment and Position: alignment normal and position normal Neck Neck: Yes normal visual inspection and Yes no lymphadenopathy Thyroid: Thyroid normal Resp Effort & Inspection: normal respiratory effort Auscultation: clear to auscultation bilaterally Cardio Rate: regular rate Rhythm: regular rhythm Heart sounds: S1 normal heart sound present, S2 normal heart sound present and no murmurs GI Palpation (GI): Soft to palpation and nontender Auscultation: normal bowel sounds Skin Rashes: no rashes Neuro General: patient oriented x3, moves all extremities, no focal motor deficits and deep tendon reflexes 2+ bilaterally Romberg Test: Negative Psych Appearance: grossly normal Mental Status: mental status grossly normal Speech and movement: Normal speech and movement present Affect: normal affect Attitude: cooperative Thought process: Normal thought process present Thought content: Normal thought content present Insight: Good insight present (Psych) Judgement: Good judgement present (Psych) Assessment and Plan Assessment & Plan (1) Physical exam: Code(s): Z.00 - Encounter for general adult medical examination without abnormal findings Plan: Labs ordered Plan The patient agreed to the use of a medical review specialist for this encounter. Scribed for VENKATESH Tovar by Radha Leija medical review specialist, on 07/19/2023 at 07:55 EST. Orders: Orders Complete Blood Count Auto Diff Today Z00.00 - Encounter for general adult medical examination without abnormal findings Comprehensive [place]. Panel Fast Today Z00.00 - Encounter for general adult medical examination without abnormal findings Lipid Panel Today Z00.00 - Encounter for general adult medical examination without abnormal findings TSH reflex Free T4 Today Z00.00 - Encounter for general adult medical examination without abnormal findings UA CC w/rflx Micro + Cult Today Z00.00 - Encounter for general adult medical examination without abnormal findings Coding Level of Care Code Est Pt Prev Care 18-39y(39700) Diagnoses Physical exam Z00.00
== END 2023-07-19 08:55 | disposition home or self-care (01) ==
PROVIDERS: Visit Provider Nurse Practitioner Family
DX: Z00.00 Encounter for general adult medical examination without abnormal findings (principal)
CPT/HCPCS: 99395

== ENCOUNTER 2023-09-22 08:57 | Outpatient (AMB) | payer OTHER, MEDICAID, SELFPAY ==
--- NOTE | 2023-09-22 09:17 | A.OFFPC_ITS ---
Vital Signs 09/22/23 09:18 Height 5 ft 6 in Weight 237 lb BMI 38.2 BP 118/74 Blood Pressure Location Lt brachial Position Sitting Pulse 87 Pulse Source Pulse Oximeter Pulse Oximetry (%) 97 Oxygen Delivery Method Room Air Intake Visit Reasons: Headache Intake Note: Pt is here today for a sick visit. Pt c/o headaches, and memory issues. Allergies pseudoephedrine [Sudafed] Adverse Reaction (Unknown, Verified 09/22/23 09:20) Tachycardia Medication List - Last Reconciled 09/22/23 by Chanda De Paz MD levothyroxine 75 mcg PO DAILY prenat.vits,viraj,gyr-rtxx-joauk 1 tab PO DAILY sertraline 75 mg PO DAILY Tobacco use date assessed: 09/22/23 Dental Screening Dental Screen Date: 07/19/23 HPI Headache HPI Details Pt presents complaining of becoming more anxious and forgetful. She is having difficulty finding words or not remembering placing objects. Patient has 5-month-old baby and 3 old daughter and works from home 20 hours a week. She reports feeling overwhelmed on occasions but denies depression. Patient helps with children but has a very busy schedule, working occasionally 14 hour day. PFS Medical History Plantar fasciitis of left foot depression Obesity Acquired hypothyroidism Polyarthralgia GERD with stricture Surgical History Hx of section History of cholecystectomy H/O endoscopy Hx of colonoscopy Family History Mother Substance use disorder Mental health disorder Medical history unknown Sister Substance use disorder Mental health disorder Sister Substance use disorder Mental health disorder Sister Substance use disorder Mental health disorder Social History Housing: House Alcohol intake: current Alcohol intake frequency: a few times a month Patient Tobacco Use Status: Never used Tobacco e-Cigarette/Vaping Use: Never Used Second Hand Smoke Exposure: No Current occupational status: employed 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 Tray Snyder, Myra Chowdhury, Edwin Thomason and colleagues, with an educational luis fernando from [employer]. Review of Systems Const All systems reviewed & are unremarkable except as noted in HPI and below Card Reports no additional complaints Resp Reports no additional complaints GI Reports no additional complaints Reports no additional complaints Musc Reports no additional complaints Physical exam (Primary Care) Vital Signs: Last Vital Signs Pulse 87 09/22/23 09:18 BP 118/74 09/22/23 09:18 Pulse Ox 97 09/22/23 09:18 Oxygen Delivery Method Room Air 09/22/23 09:18 BMI result Body Mass Index 38.2 Tobacco/Smoking Status: Tobacco use Status Tobacco use date assessed 09/22/23 09/22/23 09:23 Patient Tobacco Use Status Never used Tobacco 09/22/23 09:18 e-Cigarette/Vaping Use Never Used 09/22/23 09:18 Thrive Assessment: Date of Thrive Assessment Date Thrive assessed 07/19/23 09/22/23 09:18 Assessment and Plan Assessment & Plan (1) Anxiety: Code(s): F41.9 - Anxiety disorder, unspecified Plan: Stress management, mindfulness exercises, regular physical activity, well- balanced diet, sleep hygiene discussed with the patient. She declined seeing counselor. patient is interested in increasing sertraline dose to 75 mg daily. (2) Acquired hypothyroidism: Code(s): E03.9 - Hypothyroidism, unspecified Plan: TSH is normal patient will continue levothyroxine, Medications: New sertraline 75 mg (1.5 x 50 mg) PO DAILY 135 tabs 0RF Coding Level of Care Code Est Pt Level 3 (96614) Diagnoses Anxiety F41.9 Acquired hypothyroidism E03.9
[2023-09-22 09:18] VITALS: BP 118/74; PULSE 87; O2SAT 97; BMI 38.2
== END 2023-09-22 10:57 | disposition home or self-care (01) ==
PROVIDERS: PCP Nurse Practitioner Family; Visit Provider Internal Medicine
DX: F41.9 Anxiety disorder, unspecified (principal); E03.9 Hypothyroidism, unspecified
CPT/HCPCS: 99213

== ENCOUNTER 2024-01-23 09:49 | Outpatient (AMB) | payer OTHER, MEDICAID, SELFPAY ==
[2024-01-23 09:55] VITALS: BP 120/78; PULSE 69; O2SAT 97; BMI 36.0
--- NOTE | 2024-01-23 09:55 | A.OFFPC_ITS ---
Vital Signs 01/23/24 09:55 Height 5 ft 6 in Weight 223 lb BMI 36.0 BP 120/78 Blood Pressure Location Lt brachial Position Sitting Pulse 69 Pulse Source Pulse Oximeter Pulse Oximetry (%) 97 Oxygen Delivery Method Room Air Intake Visit Reasons: 6 month FU Re-schedule , medicine review Intake Note: Pt is here today for 6 month follow up. Allergies pseudoephedrine [Sudafed] Adverse Reaction (Unknown, Verified 09/22/23 09:20) Tachycardia Medication List - Last Reconciled 01/23/24 by VENKATESH Nye levothyroxine 75 mcg PO DAILY prenat.vits,viraj,hlr-dywr-egryn 1 tab PO DAILY sertraline 75 mg (1.5 x 50 mg) PO DAILY tirzepatide (weight loss) 5 mg subcut QWEEK Tobacco use date assessed: 01/23/24 Dental Screening Dental Screen Date: 01/23/24 HPI 6 month FU Re-schedule , medicine review HPI Details Pt reports having previous C-sections. She reports frequent fungal infections to her lower pannus. She has tried nystatin powder which worked okay. Will send ketoconazole. Denies fever, chills, and dizziness. Pt wanted to stop her levothyroxine. Highly encouraged pt to continue this. Will check TSH. PFSH Medical History Plantar fasciitis of left foot depression Obesity Acquired hypothyroidism Polyarthralgia GERD with stricture Surgical History Hx of section History of cholecystectomy H/O endoscopy Hx of colonoscopy Family History Mother Substance use disorder Mental health disorder Medical history unknown Sister Substance use disorder Mental health disorder Sister Substance use disorder Mental health disorder Sister Substance use disorder Mental health disorder Social History Housing: House Alcohol intake: current Alcohol intake frequency: a few times a month Patient Tobacco Use Status: Never used Tobacco e-Cigarette/Vaping Use: Never Used Second Hand Smoke Exposure: No Current occupational status: employed 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 1. Little interest or pleasure in doing things: not at all 2. Feeling down, depressed, or hopeless: not at all 3. Trouble falling or staying asleep, or sleeping too much: not at all 4. Feeling tired or having little energy: several days 5. Poor appetite or overeating: not at all 6. Feeling bad about yourself - or that you are a failure or have let yourself or your family down: not at all 7. Trouble concentrating on things, such as reading the newspaper or watching television: more than half the days 8. Moving or speaking so slowly that other people could have noticed. Or the opposite - being so fidgety or restless that you have been moving around a lot more than usual: not at all 9. Thoughts that you would be better off or of hurting yourself in some way: not at all Total score: 3 Depression Screening Interpretation: Negative Depression Screening Done: Yes 89405 - PHQ-9 Billing: Yes Source: Developed by Drs. Tray Snyder, Myra Chowdhury, Edwin Thomason and colleagues, with an educational luis fernando from [employer]. Thrive Questionnaire Date Thrive assessed: 01/23/24 I am a: Patient What is your living situation today?: I have a steady place to live Within the past 12 months, did the food you bought not last and you didn't have the money to get more?: Never true Within the past 12 months, did you worry whether your food would run out before you got money to buy more?: Never true Do you have trouble paying for medicines?: No Do you have trouble getting transportation to medical appointments?: No Do you have trouble paying your heating and electricity bill?: No Do you have trouble taking care of your child, family member or friend?: No Do you have trouble with day-to-day activities such as bathing, preparing meals, shopping, managing finances, etc.?: No Are you currently unemployed and looking for a job?: No Are you interested in more education?: No Please select the resources that you would like help with: None Currently or been in a relationship where the following occur: No concerns reported THRIVE Score: 0 AUDIT C Alcohol Use Questionnaire (AUDIT-C) 1. How often do you have a drink containing alcohol?: Monthly or less 2. How many drinks containing alcohol do you have on a typical day when you are drinking?: 1 or 2 3. How often do you have six or more drinks on one occasion?: Never Total Score: 1 Score Reviewed/Action Taken: Yes YAZAN-7 AMB Questionnaire YAZAN-7 Date YAZAN - 7 assessed: 01/23/24 Feeling nervous, anxious, or on edge: 0 = Not at all Not being able to stop or control worryin = Not at all Worrying too much about different things: 0 = Not at all Trouble relaxin = Several days Being so restless that it is hard to sit still: 0 = Not at all Becoming easily annoyed or irritable: 0 = Not at all Feeling afraid as if something awful might happen: 0 = Not at all Total YAZAN-7 score (0-4 normal; 5-9 mild; 10-14 moderate; 15-21 severe): 1 Source: Developed by Drs. Tray Snyder, Myra Chowdhury, Edwin Thomason and colleagues, with an educational luis fernando from [employer]. YAZAN-7 Assessment Billing YAZAN-7 Assessment Tool: YAZAN-7 Assessment [id number] Review of Systems Const Reports as per HPI Physical exam (Primary Care) Vital Signs: Last Vital Signs Pulse 69 01/23/24 09:55 BP 120/78 01/23/24 09:55 Pulse Ox 97 01/23/24 09:55 Oxygen Delivery Method Room Air 01/23/24 09:55 BMI result Body Mass Index 36.0 Tobacco/Smoking Status: Tobacco use Status Tobacco use date assessed 01/23/24 01/23/24 09:58 Patient Tobacco Use Status Never used Tobacco 01/23/24 09:58 e-Cigarette/Vaping Use Never Used 01/23/24 09:58 PHQ-9: PHQ-9 Score PHQ-9: Total score 3 01/23/24 10:06 Depression Screening Interpretation: Negative Thrive Assessment: Date of Thrive Assessment Date Thrive assessed 01/23/24 01/23/24 10:06 Currently or been in a relationship where the following occur: No concerns reported Const General: cooperative Nutritional Appearance: obese Orientation/consciousness: patient oriented x3 Resp Effort & Inspection: normal respiratory effort Auscultation: clear to auscultation bilaterally Cardio Rate: regular rate Rhythm: regular rhythm Heart sounds: S1 normal heart sound present and S2 normal heart sound present Skin Other: lower pannus with faint macular erythema (fungal) Neuro General: patient oriented x3 Psych Appearance: grossly normal Mental Status: mental status grossly normal Speech and movement: Normal speech and movement present Affect: normal affect Attitude: cooperative Thought process: Normal thought process present Thought content: Normal thought content present Insight: Good insight present (Psych) Judgement: Good judgement present (Psych) Assessment and Plan Assessment & Plan (1) Tinea: Code(s): B35.9 - Dermatophytosis, unspecified Plan: Ketoconazole sent (2) Acquired hypothyroidism: Code(s): E03.9 - Hypothyroidism, unspecified Plan: Pt mentioned stopping levothyroxine, highly encouraged her to continue this, will check TSH Plan The patient agreed to the use of a medical malpractice paralegal for this encounter. Scribed for VENKATESH Tovar by Radha Leija medical malpractice paralegal, on 01/23/2024 at 10:15 EST. Medications: New betamethasone valerate 0.1% 1 appl topical BID PRN 45 grams 0RF skin irritation ketoconazole 2% 1 appl topical DAILY 60 grams 0RF Coding Level of Care Code Est Pt Level 3 (18394) Diagnoses Tinea B35.9 Acquired hypothyroidism E03.9 Additional Codes YAZAN-7 Assessment Billing - YAZAN-7 Assessment Tool: YAZAN-7 Assessment [id number] ([id number])
== END 2024-01-23 11:15 | disposition home or self-care (01) ==
PROVIDERS: PCP Nurse Practitioner Family; Visit Provider Nurse Practitioner Family
DX: B35.9 Dermatophytosis, unspecified (principal); E03.9 Hypothyroidism, unspecified

== ENCOUNTER → 2024-01-23 09:49 | Outpatient (BNVA) | payer OTHER, MEDICAID, SELFPAY | PROVIDERS: PCP Nurse Practitioner Family; Visit Provider Nurse Practitioner Family | DX: B35.9 Dermatophytosis, unspecified (principal); E03.9 Hypothyroidism, unspecified | CPT/HCPCS: 96127 ==

== ENCOUNTER 2024-02-03 08:30 | Outpatient (REF) | payer OTHER, MEDICAID, SELFPAY ==
[2024-02-03 10:12] LABS: MANUAL DIFF FLAG NO
[2024-02-03 10:22] LABS: Basophils Percent Auto 0.6 % (0-2); Eosinophils Absolute Auto 0.3 X10*3/uL (0.0-0.4); Eosinophils Percent Auto 4.7 % (0-4); Hematocrit 41.8 % (37.0-47.0); Imm Gran Abs Auto 0.02 X10*3/uL (0.00-0.03); Imm Gran Pct Auto 0.3 % (0.0-0.4); Lymphocytes Absolute Auto 2.1 X10*3/uL (1.2-4.9); Lymphocytes Percent Auto 33.5 % (20-40); Mean Corpuscular HGB Conc 33.5 g/dl (31.0-35.0); Mean Corpuscular Hemoglobin 29.9 pg (27.0-33.0); Mean Corpuscular Volume 89.1 fL (80.0-98.0); Mean Platelet Volume 11.4 fL (9.4-12.3); Monocytes Absolute Auto 0.4 X10*3/uL (0.1-1.2); Monocytes Percent Auto 6.4 % (2-11); Neutrophils Absolute Auto 3.5 x10*3/uL (2.0-8.3); Neutrophils Percent Auto 54.5 % (45-73); Platelet Count 206 X10*3/uL (160-400); Red Blood Count 4.69 X10*6/uL (4.20-5.50); Red Cell Distribution Width 13.1 % (11.0-16.0); White Blood Count 6.4 X10*3/uL (4.8-10.8)
[2024-02-03 10:53] LABS: Alanine Aminotransferase 22 U/L (0-31); Albumin Level 4.1 g/dL (3.5-5.0); Alkaline Phosphatase 62 U/L (39-117); Anion Gap 10 (12-20); Aspartate Amino Transferase 16 U/L (5-31); Bilirubin Total 0.4 mg/dL (0.0-1.0); Blood Urea Nitrogen 15 mg/dL (9-16); Calcium 9.2 mg/dL (8.4-10.2); Carbon Dioxide 27 mmol/L (22-29); Chloride 108 mmol/L (96-108); Cholesterol 193 mg/dL (<200); Estimated Glomerular Filt Rate > 60; Glucose Fasting 77 mg/dL (60-99); HDL Cholesterol 41 mg/dL (>40); LDL Cholesterol Calculated 113 mg/dL (<100); Potassium 4.3 mmol/L (3.3-5.1); Sodium 141 mmol/L (135-145); Total Protein 6.8 g/dL (6.5-8.0); Triglycerides 198 mg/dL (<150)
[2024-02-03 11:09] LABS: TSH reflex Free T4 2.22 uIU/mL (0.32-4.0)
== END 2024-02-03 08:31 | disposition home or self-care (01) ==
LOC: HO.HMGCLDS 08:30
PROVIDERS: PCP Nurse Practitioner Family; Visit Provider Nurse Practitioner Family
DX: Z00.00 Encounter for general adult medical examination without abnormal findings (principal)
CPT/HCPCS: 36415; 80053; 80061; 84443; 85025

== ENCOUNTER 2024-03-27 10:46 | Outpatient (AMB) | payer OTHER, MEDICAID, SELFPAY ==
[2024-03-27 10:53] VITALS: BP 118/72; PULSE 73; O2SAT 98; BMI 35.3
--- NOTE | 2024-03-27 10:53 | MHC.PC.OV ---
Vital Signs 03/27/24 10:53 Height 5 ft 6 in Weight 218 lb 8 oz BMI 35.3 BP 118/72 Blood Pressure Location Rt brachial Position Sitting Pulse 73 Pulse Source Pulse Oximeter Pulse Oximetry (%) 98 Intake Visit Reasons: weight loss options Intake Note: pt is here for discussion of weight loss Allergies pseudoephedrine [Sudafed] Adverse Reaction (Unknown, Verified 03/27/24 10:53) Tachycardia Medication List - Last Reconciled 03/27/24 by HUMA Nye-BC betamethasone valerate 0.1% 1 appl topical BID PRN ketoconazole 2% 1 appl topical DAILY levothyroxine 75 mcg PO DAILY prenat.vits,viraj,[id number] 1 tab PO DAILY sertraline 75 mg (1.5 x 50 mg) PO DAILY tirzepatide (weight loss) (Zepbound) 2.5 mg (0.5 mL) subcut QWEEK Tobacco use date assessed: 01/23/24 Dental Screening Dental Screen Date: 01/23/24 HPI weight loss options HPI Details History of Present Illness The patient is a 38-year-old female presenting with a request for medication refill and weight management follow-up. BMI is at 35.3. She has a history of depression/anxiety for which she has been taking sertraline, which has been working well. The patient also reports a history of obesity and has attempted various weight loss strategies, including Terazepatide, gym attendance, Weight Watchers, and different dieting approaches. Also has dyslipidemia. She discontinued Terazepatide approximately one month prior to the visit, primarily due to financial constraints following her 's job loss. There is no mention of other symptoms affecting these conditions. She has been trying to manage her weight with several approaches but hasn't reported minimal success with any single method. The terazepatide seemed to work the best Social History - Employment: Patient is currently seeking [id number] opportunities due to impending relocation to [place] and work uncertainties. - Housing: Planning to relocate temporarily with her sister in [place]; anticipates finding permanent residence thereafter. - Family Status: , with two children. Planning relocation aligned with her ?s potential job in [place]. - Nutrition & Weight Management: Explored Terazepatide, gym attendance, Weight Watchers, among other approaches for weight loss. - Family Planning: Son, will be staying here in [facility]. Review of Systems - General: denies any EM, blurred vision, CP, SOB. - Psychiatric: denies any si or hi Physical Exam - Cardiovascular- Heart sounds clear on auscultation. - Respiratory- Clear breath sounds on deep breathing. -obesity noted -no edema A+Ox3 Results Plan - Depression: Reinstatement of sertraline prescription to support mental health stabilization during the upcoming trip and transition period. - Obesity: Reinforce continuation of lifestyle and dietary modifications to support weight management. Patient was informed and verbally consented to the use of an ambient scribe for clinic note documentation during this visit. Discussion Notes I discussed with the patient the importance of continuity with her medication for depression/anxiety(sertraline), especially during periods of significant life changes such as relocation. We reviewed the impact of discontinuation and the risks linked to pauses in treatment. The patient understood the necessity to resume her sertraline. In terms of weight management, we acknowledged her efforts with Terazepatide but emphasized sustainable lifestyle modifications as a cornerstone approach, given its pause largely due to financial constraints. Patient Instructions - Resume sertraline as prescribed. - Continue efforts for lifestyle and dietary modifications. - Monitor mental health status and seek timely interventions if symptoms exacerbate. - Plan and coordinate relocation logistics, maintaining communication on pending job prospects and settlement plans in [place]. - If any adverse symptoms arise, particularly with mental health medications, contact for further consultation. [facility] Medical History Plantar fasciitis of left foot depression Obesity Acquired hypothyroidism Polyarthralgia GERD with stricture Surgical History Hx of section History of cholecystectomy H/O endoscopy Hx of colonoscopy Family History Mother Substance use disorder Mental health disorder Medical history unknown Sister Substance use disorder Mental health disorder Sister Substance use disorder Mental health disorder Sister Substance use disorder Mental health disorder Social History Housing: House Alcohol intake: current Alcohol intake frequency: a few times a month Patient Tobacco Use Status: Never used Tobacco e-Cigarette/Vaping Use: Never Used Second Hand Smoke Exposure: No Current occupational status: employed 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 Cognitive needs: No Hearing needs: No Vision needs: Yes Questionnaire Thrive Questionnaire Date Thrive assessed: 01/23/24 I am a: Patient What is your living situation today?: I have a steady place to live Within the past 12 months, did the food you bought not last and you didn't have the money to get more?: Never true Within the past 12 months, did you worry whether your food would run out before you got money to buy more?: Never true Do you have trouble paying for medicines?: No Do you have trouble getting transportation to medical appointments?: No Do you have trouble paying your heating and electricity bill?: No Do you have trouble taking care of your child, family member or friend?: No Do you have trouble with day-to-day activities such as bathing, preparing meals, shopping, managing finances, etc.?: No Are you currently unemployed and looking for a job?: No Are you interested in more education?: No Please select the resources that you would like help with: None Currently or been in a relationship where the following occur: No concerns reported THRIVE Score: 0 YAZAN-7 AMB Questionnaire YAZAN-7 Date YAZAN - 7 assessed: 01/23/24 Source: Developed by Drs. Tray Snyder, Myra Chowdhury, Edwin Thomason and colleagues, with an educational luis fernando from [employer]. Physical exam (Primary Care) Vital Signs: Last Vital Signs Pulse 73 03/27/24 10:53 BP 118/72 03/27/24 10:53 Pulse Ox 98 03/27/24 10:53 BMI result Body Mass Index 35.3 Tobacco/Smoking Status: Tobacco use Status Tobacco use date assessed 01/23/24 03/27/24 10:57 Patient Tobacco Use Status Never used Tobacco 03/27/24 10:57 e-Cigarette/Vaping Use Never Used 03/27/24 10:57 Thrive Assessment: Date of Thrive Assessment Date Thrive assessed 01/23/24 03/27/24 10:57 Currently or been in a relationship where the following occur: No concerns reported Coding Level of Care Code Est Pt Level 3 (76428) Diagnoses Obesity E66.9 Anxiety F41.9 Depression F32.A Assessment & Plan Assessment & Plan (1) Obesity: Code(s): E66.9 - Obesity, unspecified Category: Medical (2) Anxiety: Code(s): F41.9 - Anxiety disorder, unspecified Category: Medical (3) Depression: Code(s): F32.A - Depression, unspecified Category: Medical Plan: sertraline working well Plan . Medications: New tirzepatide (weight loss) (Zepbound) for 4 weeks 2.5 mg (0.5 mL) subcut QWEEK 2 mL 0RF Refilled sertraline 75 mg (1.5 x 50 mg) PO DAILY 135 tabs 0RF
== END 2024-03-27 13:10 | disposition home or self-care (01) ==
PROVIDERS: PCP Nurse Practitioner Family; Visit Provider Nurse Practitioner Family
DX: F41.9 Anxiety disorder, unspecified (principal); E66.9 Obesity, unspecified; F32.A Depression, unspecified; Z68.35 Body mass index [BMI] 35.0-35.9, adult

== ENCOUNTER → 2024-03-27 10:46 | Outpatient (BNVA) | payer OTHER, MEDICAID, SELFPAY | PROVIDERS: PCP Nurse Practitioner Family; Visit Provider Nurse Practitioner Family ==

== ENCOUNTER 2024-04-17 13:31 | Outpatient (REF) | payer OTHER, MEDICAID, SELFPAY ==
[2024-04-17 14:44] LABS: MANUAL DIFF FLAG NO
[2024-04-17 14:50] LABS: Basophils Percent Auto 0.4 % (0-2); Eosinophils Absolute Auto 0.3 X10*3/uL (0.0-0.4); Eosinophils Percent Auto 3.7 % (0-4); Hematocrit 37.3 % (37.0-47.0); Hemoglobin 13.1 g/dl (12.0-16.0); Imm Gran Abs Auto 0.02 X10*3/uL (0.00-0.03); Imm Gran Pct Auto 0.3 % (0.0-0.4); Lymphocytes Absolute Auto 2.1 X10*3/uL (1.2-4.9); Lymphocytes Percent Auto 26.1 % (20-40); Mean Corpuscular HGB Conc 35.1 g/dl (31.0-35.0); Mean Corpuscular Hemoglobin 30.8 pg (27.0-33.0); Mean Corpuscular Volume 87.8 fL (80.0-98.0); Mean Platelet Volume 11.2 fL (9.4-12.3); Monocytes Absolute Auto 0.5 X10*3/uL (0.1-1.2); Monocytes Percent Auto 6.3 % (2-11); Neutrophils Percent Auto 63.2 % (45-73); Platelet Count 201 X10*3/uL (160-400); Red Blood Count 4.25 X10*6/uL (4.20-5.50); Red Cell Distribution Width 13.2 % (11.0-16.0); White Blood Count 7.9 X10*3/uL (4.8-10.8)
[2024-04-17 14:54] LABS: Appearance Urine Clear; Color Urine Yellow; Glucose Urine UA Negative (Negative); Leukocyte Esterase Urine Negative (Negative); Nitrite Urine Negative (Negative); PH 5.5 (5.0-9.0); Urine Blood Negative (Negative); Urine Ketones Negative (Negative); Urine Protein Negative (Neg-Trace)
[2024-04-17 14:56] LABS: Bacteria Urine None Seen (None Seen); Hyaline Casts Urine 0-2 /LPF (0-2); RBC Urine 0-2 /HPF (0-2); WBC Urine 0-5 /HPF (0-5)
[2024-04-17 15:27] LABS: Alanine Aminotransferase 15 U/L (0-31); Anion Gap 11 (12-20); Aspartate Amino Transferase 16 U/L (5-31); Bilirubin Total 0.2 mg/dL (0.0-1.0); Blood Urea Nitrogen 15 mg/dL (9-16); C Reactive Protein 0.25 mg/dL (< or = 0.50); Calcium 9.1 mg/dL (8.4-10.2); Carbon Dioxide 26 mmol/L (22-29); Chloride 106 mmol/L (96-108); Estimated Glomerular Filt Rate > 60; Glucose Random 89 mg/dL (60-115); Potassium 4.1 mmol/L (3.3-5.1); Sodium 139 mmol/L (135-145); Total Protein 6.6 g/dL (6.5-8.0)
[2024-04-17 15:31] LABS: Erythrocyte Sedimentation Rate 14 MM/HR (0-20)
[2024-04-17 15:32] LABS: Creatinine Urine 99.15 mg/dL; Total Protein Urine Random < 7 mg/dL (<12)
[2024-04-17 15:59] LABS: Alkaline Phosphatase 75 U/L (39-117)
[2024-04-19 10:28] LABS: Complement C3 135 mg/dL (83-193)
[2024-04-19 13:58] LABS: Anti DNA DS Antibody <1 IU/mL; Antibody to SS-A Antigen <1.0 NEG AI (<1.0 NEG); Antibody to SS-B Antigen <1.0 NEG AI (<1.0 NEG); SM/Ribonucleoprotein Ab <1.0 NEG AI (<1.0 NEG); Smith Protein <1.0 NEG AI (<1.0 NEG)
[2024-04-19 15:38] LABS: Anti Nuclear Antibody Pattern Nuclear, Speckled; Anti Nuclear Antibody Screen POSITIVE (NEGATIVE); Anti Nuclear Antibody Titer 1:40 titer
[2024-04-21 06:38] LABS: PTT (LAC) Screen 40 sec (<=40)
[2024-04-24 10:54] LABS: DNAds, Crithidia Antibody Negative (Negative)
== END 2024-04-17 13:32 | disposition home or self-care (01) ==
LOC: HO.LAB 13:31
PROVIDERS: PCP Nurse Practitioner Family; Visit Provider Student in an Organized Health Care Education/Training Program
DX: R76.8 Other specified abnormal immunological findings in serum (principal); M32.9 Systemic lupus erythematosus, unspecified; D68.61 Antiphospholipid syndrome
CPT/HCPCS: 36415; 80053; 81001; 82570; 84156; 85025; 85597; 85598; 85613; 85652; 85730; 86038; 86039; 86140; 86160; 86225; 86235; 86255

== ENCOUNTER 2024-04-17 13:31 | Outpatient (AMB) | payer OTHER, MEDICAID, SELFPAY ==
[2024-04-17 13:34] VITALS: BP 114/70; PULSE 74; O2SAT 98; BMI 35.9
--- NOTE | 2024-04-17 13:34 | A.OFFVIS_ITS ---
Vital Signs 04/17/24 13:34 Height 5 ft 6 in Weight 222 lb 10.67 oz BMI 35.9 BP 114/70 Blood Pressure Location Lt brachial Position Sitting Pulse 74 Pulse Source Pulse Oximeter Pulse Oximetry (%) 98 Oxygen Delivery Method Room Air Intake Visit Reasons: + JENNIFER/CM Intake Note: Patient last seen by Doctor Sammy Montez on 05/07/23. Presents today for +JENNIFER follow up. Allergies pseudoephedrine [Sudafed] Adverse Reaction (Unknown, Verified 04/17/24 13:38) Tachycardia Medication List - Last Reconciled 04/17/24 by Sammy Montez MD betamethasone valerate 0.1% 1 appl topical BID PRN ketoconazole 2% 1 appl topical DAILY levothyroxine 75 mcg PO DAILY prenat.vits,viraj,[id number] 1 tab PO DAILY sertraline 75 mg (1.5 x 50 mg) PO DAILY tirzepatide (weight loss) (Zepbound) 2.5 mg (0.5 mL) subcut QWEEK HPI Comments Details: The patient returns for follow-up after completion of her diagnostic workup she was last seen in clinic 01/2022. She then proceeded to have fertility treatment. She gave to a son back in April of 2023. She now has 2 children and not planning to have anymore. States that the and . Was generally uneventful. She states that over the last year she has had about 4 episodes when she would have generalized fatigue, generalized a chiness, pain in her hands, wrists, thighs. She states that she her sleep has not been greatest, she has to take care of 2 children. She mentioned that she had rashes on her neck and upper chest. She was evaluated by equity director and she was told that these are not likely to be lupus rashes, likely allergies. Initial history: This is a 36-year-old female with past medical history of morbid obesity, hypothyroidism, depression, who presents for evaluation of positive JENNIFER and diffuse pain. The condition started about a year and a half ago after she had her 2nd child she has been having pain in her hands, feet, ankles associated with stiffness, worse in the morning, sometimes lasting 2 hours and difficulty with her dexterity such as opening jars. Patient took Tylenol Arthritis for this pain which did not help much. She does not recall if she took NSAIDs. She had random skin rashes on the left side of her neck and her hand. Does are itchy. She went to urgent care for the skin rash once and received a steroid cream with resolution of her rash. She has been evaluated multiple times for palpitations and had an echocardiogram which was negative as well as a Holter monitor for 2 days which was negative, however she recently had another Holter monitor for 1 week. In the cold her toes change color to whitish and sometimes turn blue associated with pain and numbness. Denies ever getting any digital ulcers. Patient feels that her overall symptoms have improved over the last 6 months. She has changed her diet, tries to consume an anti inflammatory diet. She took to make for about 6 months without significant benefit. She denies any history of DVT/PE, denies any blood or froth in urine. She is adopted and is unaware of any family history of autoimmune diseases. Patient has a hard time falling asleep, she has to take either melatonin or unisom, does not wake up refreshed, does not snore. [facility] Medical History Plantar fasciitis of left foot depression Obesity Acquired hypothyroidism Polyarthralgia GERD with stricture Surgical History Hx of section History of cholecystectomy H/O endoscopy Hx of colonoscopy Family History Mother Substance use disorder Mental health disorder Medical history unknown Sister Substance use disorder Mental health disorder Sister Substance use disorder Mental health disorder Sister Substance use disorder Mental health disorder Social History Housing: House Alcohol intake: current Alcohol intake frequency: a few times a month Patient Tobacco Use Status: Never used Tobacco e-Cigarette/Vaping Use: Never Used Second Hand Smoke Exposure: No Current occupational status: employed 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 Cognitive needs: No Hearing needs: No Vision needs: Yes Female Reproductive History Menstrual Total pregnancies: 5 Number of Living Children: 3 Review of Systems Const Reports fatigue Resp Reports no additional complaints Musc Reports myalgias, Reports arthralgias and Denies joint swelling Endo Reports fatigue Physical Exam Vital Signs: Last Vital Signs Pulse 74 04/17/24 13:34 BP 114/70 04/17/24 13:34 Pulse Ox 98 04/17/24 13:34 Oxygen Delivery Method Room Air 04/17/24 13:34 BMI result Body Mass Index 35.9 Const General: cooperative, healthy appearing, comfortable and no acute distress Nutritional Appearance: obese morbidly obese Orientation/consciousness: patient oriented x3 Limitations: no limitations HEENT Head: Yes normocephalic and Yes atraumatic Mouth: moist mucous membranes Resp Effort & Inspection: normal respiratory effort and able to speak in complete sentences Auscultation: clear to auscultation bilaterally Cardio Rate: regular rate Rhythm: regular rhythm Skin General skin exam: no rashes or lesions noted Neuro General: patient oriented x3 Extrem Other: Mildly positive Fish's test left hand No active synovitis otherwise Normal range of motion of hands, wrists, elbows and shoulders without pain Knee pain with full flexion-extension Normal nailfold capillaroscopy Assessment & Plan Assessment & Plan (1) JENNIFER positive: Code(s): R76.8 - Other specified abnormal immunological findings in serum Category: Medical Plan: This is a 38-year-old female with a past medical history of hypothyroidism, obesity and depression who presented for evaluation of diffuse joint pain, positive JENNIFER 1-80 speckled + lupus anticoagulant and positive dsDNA. Since 2020 patient has had flares of fatigue and generalized pain. These flares happen 2 to 3 times a month and last 1-3 days. She denied any joint swelling. There are no skin rashes. No history of DVT/PE. Labs showed a positive dsDNA and positive lupus anticoagulant testing. Patient had an 18-year-old and had fe rtility treatments to have her 2nd child about 3 years ago. For her 2nd child she conceived through fertility treatments, she had her 3rd child delivered 04/2023. Per patient was uneventful. the 1st 1 was a blighted ovum followed by miscarriage. There is no history of DVT/PE. Per patient she needed to be on aspirin while due to hypertension. Today patient complains of similar episodes happening since her childbirth 04/2023. Her physical exam is unremarkable. Check labs. Follow-up after blood work is completed Plan I spent 16 minutes reviewing patient's chart, evaluating patient, ordering diagnostic workup, counseling patient and documenting in the chart Orders: Orders Lupus Anticoagulant Panel Today D68.61 - Antiphospholipid syndrome Anti Extractable Nuclear Ag Today M32.9 - Systemic lupus erythematosus, unspecified Complement C3 Today M32.9 - Systemic lupus erythematosus, unspecified C Reactive Protein Today M32.9 - Systemic lupus erythematosus, unspecified DNA Double Stranded-Crithidia Today M32.9 - Systemic lupus erythematosus, unspecified Sjogren's Antibodies Today M32.9 - Systemic lupus erythematosus, unspecified Complete Blood Count Auto Diff Today M3.9 - Systemic lupus erythematosus, unspecified JENNIFER Reflex Titer and Pattern Today M3.9 - Systemic lupus erythematosus, unspecified Anti DNA DS Antibody Today M3.9 - Systemic lupus erythematosus, unspecified Complement C4 Today M32.9 - Systemic lupus erythematosus, unspecified Erythrocyte Sedimentation Rate Today M32.9 - Systemic lupus erythematosus, unspecified Protein Creatinine Ratio, Ur Today M32.9 - Systemic lupus erythematosus, unspecified UA w Microscopic Today M32.9 - Systemic lupus erythematosus, unspecified Comprehensive Met. Panel Today M32.9 - Systemic lupus erythematosus, unspecified Coding Level of Care Code Est Pt Level 3 (96056) Diagnoses JENNIFER positive R76.8
== END 2024-04-17 14:19 | disposition home or self-care (01) ==
PROVIDERS: PCP Nurse Practitioner Family; Visit Provider Student in an Organized Health Care Education/Training Program
DX: R76.8 Other specified abnormal immunological findings in serum (principal)
CPT/HCPCS: 99213

== ENCOUNTER 2024-05-30 14:09 | Outpatient (AMB) | payer OTHER, MEDICAID, SELFPAY ==
[2024-05-30 14:14] VITALS: BP 124/76; PULSE 84; BMI 35.6
--- NOTE | 2024-05-30 14:14 | A.OFFVIS_ITS ---
Vital Signs 05/30/24 14:14 Height 5 ft 6 in Weight 220 lb 7.396 oz BMI 35.6 BP 124/76 Blood Pressure Location Rt brachial Position Sitting Pulse 84 Pulse Source Pulse Oximeter Intake Visit Reasons: JENNIFER +ve Intake Note: Patient presents here today for a follow-up for a+JENNIFER Results: Patient having more pain Quality Assurance Representative Required: No Accompanied by: Daughter Allergies pseudoephedrine [Sudafed] Adverse Reaction (Unknown, Verified 05/30/24 14:27) Tachycardia HPI Comments Details: Patient is a 38-year-old morbidly obese female with hypothyroidism here today to follow up JENNIFER positive in the setting of polyarthralgias Interval History: Patient last seen 04/17/[address] Montez. At that time she was following up diagnostic workup after being lost to follow up for about 2 years. Today, Patient states she has noticed that after she gave to her son she was doing well but now she is about 9 months and she started to notice that 1 week prior to her periods she gets overwhelming fatigue, polyarthralgias and significant pain. This lasts for the week until her. Comes and then it improves. It does not happen every month but when it does it is quite significant. She does report some history of photosensitivity and morning stiffness. Rheumatologic History: Initial history: This is a 36-year-old female with past medical history of morbid obesity, hypothyroidism, depression, who presents for evaluation of positive JENNIFER and diffuse pain. The condition started about a year and a half ago after she had her 2nd child she has been having pain in her hands, feet, ankles associated with stiffness, worse in the morning, sometimes lasting 2 hours and difficulty with her dexterity such as opening jars. Patient took Tylenol Arthritis for this pain which did not help much. She does not recall if she took NSAIDs. She had random skin rashes on the left side of her neck and her hand. Does are itchy. She went to urgent care for the skin rash once and received a steroid cream with resolution of her rash. She has been evaluated multiple times for palpitations and had an echocardiogram which was negative as well as a Holter monitor for 2 days which was negative, however she recently had another Holter monitor for 1 week. In the cold her toes change color to whitish and sometimes turn blue associated with pain and numbness. Denies ever getting any digital ulcers. Patient feels that her overall symptoms have improved over the last 6 months. She has changed her diet, tries to consume an anti inflammatory diet. She took to make for about 6 months without significant benefit. She denies any history of DVT/PE, denies any blood or froth in urine. She is adopted and is unaware of any family history of autoimmune diseases. Patient has a hard time falling asleep, she has to take either melatonin or unisom, does not wake up refreshed, does not snore. Since 2020 patient has had flares of fatigue and generalized pain. These flares happen 2 to 3 times a month and last 1-3 days. She denied any joint swelling. There are no skin rashes. No history of DVT/PE. Labs showed a positive dsDNA and positive lupus anticoagulant testing. Patient had an 18-year-old and had fertility treatments to have her 2nd child about 3 years ago. For her 2nd child she conceived through fertility treatments, she had her 3rd child delivered 04/2023. Per patient was uneventful. the 1st 1 was a blighted ovum followed by miscarriage. There is no history of DVT/PE. Per patient she needed to be on aspirin while due to hypertension. Current Rheumatology Medication(s): [facility] Medical History Plantar fasciitis of left foot depression Obesity Acquired hypothyroidism Polyarthralgia GERD with stricture Surgical History Hx of section History of cholecystectomy H/O endoscopy Hx of colonoscopy Family History Mother Substance use disorder Mental health disorder Medical history unknown Sister Substance use disorder Mental health disorder Sister Substance use disorder Mental health disorder Sister Substance use disorder Mental health disorder Social History (Reviewed 05/30/24 @ 14:17 by LULÚ Winters Housing: House Alcohol intake: current Alcohol intake frequency: a few times a month Patient Tobacco Use Status: Never used Tobacco e-Cigarette/Vaping Use: Never Used Second Hand Smoke Exposure: No Current occupational status: employed 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 Cognitive needs: No Hearing needs: No Vision needs: Yes Review of Systems Const Details: Review of Systems Constitutional: Denies fever, chills, weight loss ENT: Denies vision changes, eye pain or eye redness, dental caries, dry mouth GI: Denies nausea, vomiting, diarrhea, abdominal pain, change in BM Pulm: Denies SOB, ABRAMS, hemoptysis, wheezing Cards: Denies chest pain, palpitations Skin: Denies Raynaud's, rash, nail changes, photosensitivity, ROLL BUCKER: Denies headaches, weakness, paresthesias, recurrent falls MSK: as per HPI All other systems reviewed and are unremarkable except noted above Physical Exam Vital Signs: Last Vital Signs Pulse 84 05/30/24 14:14 BP 124/76 05/30/24 14:14 BMI result Body Mass Index 35.6 Vital signs reviewed Physical Examination CONSTITUITIONAL Patient alert and cooperative. Well appearing and in no apparent painful distress HEENT Conjunctiva and sclera clear. ?Pupils equal round and reactive to light. ?No lymphadenopathy. ? CHEST/RESPIRATORY SYSTEM Normal respiratory effort and able to speak in complete sentences. ?Clear to auscultation bilaterally. ?No crackles, rales, rhonchi, wheezes heard. CARDIAC SYSTEM Regular rate and rhythm. ?S1 and S2 heard no murmurs. ?Radial pulses intact bilaterally MSK Hands: ?Good clean room technician strength bilaterally. No deformities noted. ?No synovitis no emily to the MCPs, PIPs or DIPs. ?No tenderness to palpation of these joints. Wrists: ?Full range of motion at the wrists without pain. ?No tenderness to palpation or synovitis noted to the wrists. Elbows: Full range of motion without pain. No tenderness, weakness, swelling, increased warmth or erythema. Shoulders: Full range of motion without pain. No tenderness, weakness, swelling, increased warmth or erythema. Hips: Full range of motion without pain. Hip bursa: No tenderness to palpation Knees: ?Full range of motion. ?No tenderness, swelling, increased warmth or erythema.?No effusion or crepitations Ankles: Full range of motion. ?No tenderness, swelling, increased warmth or erythema.? Feet: ?Negative squeeze test. ?No tenderness to palpation or swelling of the MTPs. Tender points:?No tenderness to palpation of the bilateral trapezius, supraspinatus, greater trochanters, anterior costochondral junctions, bilateral gluteal areas, bilateral suboccipital muscle insertions SKIN Skin intact without rashes. Results Reviewed Results Reviewed: Laboratory Tests 12/29/21 04/17/24 04/17/24 10:35 14:31 14:40 WBC 7.9 RBC 4.25 Hgb 13.1 Hct 37.3 Plt Count 201 ESR 14 Sodium 139 Potassium 4.1 Chloride 106 Carbon Dioxide 26 BUN 15 Creatinine 0.86 Total Bilirubin 0.2 AST 16 ALT 15 Alkaline Phosphatase 75 C-Reactive Protein 0.25 Total Protein 6.6 Albumin 4.0 Urine Color Yellow Urine Appearance Clear Urine pH 5.5 Ur Specific [place] 1.020 Urine Protein Negative U Random Total Protein < 7 JENNIFER Screen POSITIVE A JENNIFER Titer 1:40 H JENNIFER Pattern Nuclear, Speckled A SS-A/Ro Antibody <1.0 NEG SS-B/La Antibody <1.0 NEG Sm (Post) Antibody <1.0 NEG SM/STAVE INSPECTOR IgG Antibody <1.0 NEG Anti-ds DNA Titer (Crith) 1:40 H TNP Anti-ds DNA (Crithidia) Positive A Negative Double Strand DNA Ab <1 Complement C3 135 Complement C4 20 Assessment & Plan Assessment & Plan (1) Polyarthralgia: Code(s): M25.50 - Pain in unspecified joint Category: Medical Plan: #Polyarthralgias Patient is a 38-year-old female who presents with palindromic polyarthralgias that she has determined have been pre menstrual (the week before her menstrual period). This is in the setting of a positive JENNIFER. Her JENNIFER titers have always been 01:40 and this is not a clinically significant JENNIFER. For the diagnosis of autoimmune connective tissue disease at the very least the JENNIFER should be 1:80. Also given her childbearing age it is not uncommon for women of childbearing age to intermittently make JENNIFER and it regress. While this patient is definitely experiencing intermittent symptoms I do not believe that she has an autoimmune connective tissue disease such as lupus at this time. I discussed with the patient and I think it warrants monitoring as she may have an early pre clinical diagnosis. I think it is fair for us to continue to monitor her once a year and she is aware of all of the signs and symptoms to look out for. Also let her know that if and when the symptoms do recur she has to reach out to the office and we will send blood work and try to get her in to be seen right away. She also mentioned that she is planning to move to the [facility] in 2024, I informed her that it would be good to touch base with a insurance follow up representative especially for continued monitoring of a potentially developing autoimmune condition. Plan - No further tests today - RTC 1 year or sooner Plan I spent 20 minutes reviewing the record and labs, taking a history, examining the patient, discussing the treatment plan and documenting in the medical record Coding Level of Care Code Est Pt Level 3 (02676) Diagnoses Polyarthralgia M25.50
--- OUTSIDE RECORDS SUMMARY | 2024-05-30 15:25 | XMS_ITS | Clinical Summary ---
Author Organization [facility] Address [address] [place] [address] Care Team Providers Care Econometrician Name Role Phone Unavailable Primary Care Provider Unavailabl e Social History Tobacco Use Types Packs/Day Years Used Date Smoking Tobacco: Never Assessed Sex and Gender Information Value Date Recorded Sex Assigned at Not on file Gender Identity Not on file Sexual Orientation Not on file Plan of Treatment Health Maintenance Due Date Last Done Comments DTaP,Tdap,and Td Vaccines (1 - Tdap) 08/16/2003 Hepatitis B Vaccines (1 of 3 - 19+ 3-dose series) 08/16/2003 Cervical Cancer Screening: P ap Smear 2005 Depression Screening 03/28/2022 HIV Screening 03/28/2022 Hepatitis C Screening 03/28/2022 Social Influencers of Health Screening 03/28/2022 COVID-19 Vaccine (2023-2 5 season) 2023 Influenza Vaccine (#1) 2023 HIB Vaccines Aged Out No longer eligi ble based on patient's age to complete this topic HPV Vaccines Aged Out No longer eligi ble based on patient's age to complete this topic Hepatitis A Vaccines Aged Out No long er eligible based on patient's age to complete this topic IPV Vaccines Aged Out No longer eligi ble based on patient's age to complete this topic MMR Vaccines Aged Out No longer eligi ble based on patient's age to complete this topic Meningococcal ACWY Vaccine Aged Out N o longer eligible based on patient's age to complete this topic Pneumococcal Vaccine: Pediat rics (0 to 5 Years) and At-Risk Patients (6 to 64 Years) Aged Out No longer eligible b ased on patient's age to complete this topic RSV Immunization Patients Un omid 20 months Aged Out No longer eligible b ased on patient's age to complete this topic Varicella Vaccines Aged Out No longer eligible based on patient's age to complete this topic
--- OUTSIDE RECORDS SUMMARY | 2024-05-30 15:25 | XMS_ITS | Clinical Summary ---
Author Organization [facility] Address [address] [place] [address] Care Team Providers Care Vertical Mill Operator Name Role Phone Unavailable Primary Care Provider Unavailabl e Social History Tobacco Use Types Packs/Day Years Used Date Smoking Tobacco: Never Assessed Sex and Gender Information Value Date Recorded Sex Assigned at Not on file Gender Identity Not on file Sexual Orientation Not on file Job Start Date Occupation Industry Not on file Not on file Not on file Plan of Treatment Not on file
== END 2024-05-30 14:53 | disposition home or self-care (01) ==
PROVIDERS: PCP Nurse Practitioner Family; Visit Provider Student in an Organized Health Care Education/Training Program
DX: M25.50 Pain in unspecified joint (principal)
CPT/HCPCS: 99213

== ENCOUNTER → 2024-05-30 14:09 | Outpatient (BNVA) | payer OTHER, MEDICAID, SELFPAY | PROVIDERS: PCP Nurse Practitioner Family; Visit Provider Student in an Organized Health Care Education/Training Program ==